=== PATIENT | female | born 1995 | race Caucasian/White ===

== ENCOUNTER 2018-09-11 21:37 | Emergency (ER) | payer OTHER ==
[~2018-09-11] VITALS: Ht 160 cm; Wt 65.8 kg
[2018-09-11] MEDS ORDERED: DONNATAL/LIDOCAINE/MAALOX 30 ML SUSP PO ONE (22:15)
[2018-09-11] MEDS ORDERED: ONDANSETRON HCL INJ 2MG/ML 2ML 2 MG/ML VIAL IV STA (22:51)
[2018-09-11] MEDS ORDERED: MORPHINE SULFATE INJ 4 MG/ML INJ 1ML IV PRN (23:00)
[2018-09-11] MEDS ORDERED: PANTOPRAZOLE 40 MG 10ML VIAL IV STA (23:03)
[2018-09-11] MEDS ORDERED: SODIUM CHLORIDE 0.9% 1000ML 1,000 ML IV SCH (23:15)
--- NOTE | 2018-09-12 00:14 | Diagnostic Imaging Report ---
EXAM: Right Upper Quadrant Ultrasound INDICATION: ^[id number] COMPARISON: None. TECHNIQUE: Transverse and longitudinal images of the right upper abdomen were obtained. FINDINGS: Liver: Size: 13.4 cm in the right midclavicular line, normal Appearance: Normal echogenicity, smooth contour Mass: No focal masses Gallbladder: Stones/Sludge: None Wall: 0.1 cm Appearance: No pericholecystic fluid or hydrops. Sonographic Ngo's Sign: Negative Bile Ducts: Intrahepatic Ducts: No dilatation Extrahepatic Ducts: Common bile duct measures 0.2 cm, no dilatation Pancreas: Visualized pancreas is unremarkable. Right Kidney: Size: 9.6 cm Echogenicity: Normal Parenchymal thickness: Normal Collecting system: No hydronephrosis Stones: None Cyst/Mass: None Vessels: Aorta: Visualized portions are normal Inferior Vena Cava: Visualized portions are normal Main Portal Vein: 0.6 cm, normal size with hepatopetal flow. Free Fluid: No ascites or pleural effusion IMPRESSION: Unremarkable right upper quadrant ultrasound. Signed by: Dr. Gabo Heart MD on 09/12/2018 12:11 AM
[2018-09-12 01:08] VITALS: BP 118/91
== END 2018-09-12 01:14 | disposition home or self-care (01) ==
LOC: FSED 21:37
DX: R10.13 Epigastric pain (principal); K29.00 Acute gastritis without bleeding
CPT/HCPCS: 76705; 80053; 81003; 81025; 85025; 99284